=== PATIENT | male | born 1995 | race Caucasian/White ===

== ENCOUNTER 2018-01-06 10:55 | Emergency (ER) | payer BC, SELFPAY ==
[2018-01-06 10:59] VITALS: BP 140/87; PULSE 88; RESP 16; TEMP 36.8; O2SAT 98
--- NOTE | 2018-01-06 11:12 | W.ED.GENAD ---
Discharge Plan Disposition Patient Disposition: HOME Condition: Fair Discharge Details Chief Complaint: Nk/Back Pain Clinical Impression: Lumbar strain Primary Care Provider: Ronna Murrieta ED Provider: Jack Carpenter Home Meds and New Rx's Prescriptions: New cyclobenzaprine 10 mg tablet 10 mg PO TID PRN (Reason: back pain) Qty: 30 RF: 0 Continue triamcinolone acetonide 15 GM ointment 1 liang Topical BID Qty: 80 RF: 1 Discharge Instructions Instructions: Low Back Strain (ED) Additional Instructions: follow up with your primary care provider next week you can take 1000mg tylenol and 600mg ibuprofen every 6 hours for pain if you have difficulty urinating, abdominal pain or fevers return to the emergency department Discharge Data Discharge Physician: Jack Carpenter Medical Decision Making 22 yo male who denies chronic medical problems, no hx of ivdu or back surgeries, 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 Denies weakness, numbness or difficulty urinating, does have relief of pain when bending forward. Has normal reflexes, no saddle asnthesia and full strength of the lower extremities. Has no midline pain or cva tenderness. I suspect muscle strain vs spasm, could also be disc herniation. No findings to suggest sea or cauda equina at this time so do not feel emergent MRI indicated. Has no trauma so doubt fx and do not feel xray or ct indicated. No systemic symptoms or fevers so doubt cancer or infection at this time. Will start him on oral meds and have him f/u with pcp, return precautions given. Has no abdominal tenderness to suggest intrabdominal pathology at this time Differential Diagnosis back strain, muscle spasm, sciatica, disc herniation HPI General Mode of arrival: ambulatory. Date/Time Provider Initiated Documentation: 01/06/18 11:03. Limitations to Documentation: no limitations. Information obtained by: patient. History of Present Illness 22 year old M presents to the emergency department with the chief complaint of back pain, described as moderate, with intensity rated at 5. Quality is described as aching, and is localized to the back. Patient extremity. Patient started experiencing this day(s) (1) and it has been constant. other things that improve symptom(s), (bending forward) No exacerbating factors reported . Patient notes no other symptoms.. Patient did receive the following treatments prior to arrival, NSAID Related Data Home Medications Medication Instructions Recorded Confirmed triamcinolone acetonide 1 liang TOPICAL BID #80 gm 08/11/17 cyclobenzaprine 10 mg PO TID PRN #30 tab 01/06/18 Previous Rx's Medication Instructions Recorded triamcinolone acetonide 1 liang TOPICAL BID #80 gm 08/11/17 cyclobenzaprine 10 mg PO TID PRN #30 tab 01/06/18 Allergies Allergy/AdvReac Type Severity Reaction Status Date / Time No Known Allergies Allergy Unverified 08/19/15 08:27 General Stated Complaint: Nk/Back Pain ANNE-MARIE: 4 Review of Systems Review of Systems All systems reviewed & are unremarkable except as noted in HPI and below Constitutional Denies chills, Denies fever(s) and Denies weakness Eyes Denies loss of vision ENT Denies change in voice Cardiovascular Denies chest pain and Denies dyspnea Respiratory Denies dyspnea Gastrointestinal Denies abdominal pain, Denies nausea and Denies vomiting Genitourinary Denies dysuria Musculoskeletal Denies joint swelling Integumentary/Breasts Denies rash Neurologic Denies loss of vision and Denies weakness Psychiatric Denies depression Allergic/Immunologic Reports urticaria PFSH Family History Father Asthma Sister Asthma Grandmother Diabetes Hearing loss Mother No problems noted. Grandfather Cerebrovascular accident Grandfather No problems noted. Grandmother Diabetes PATERNAL FAMILY HISTORY Essential hypertension Personal history of malignant neoplasm Medical History Anemia Febrile convulsion Social History Smoking/Tobacco Use Status: Former Tobacco Use Exam Const General: no acute distress Orientation: alert [facility] Head: normal to inspection Ears: external ears normal General nose exam: external nose normal Mouth: moist mucous membranes Eyes General: appearance normal, both eyes and all related structures Neck Neck: normal visual inspection Resp Effort & Inspection: normal respiratory effort and able to speak in complete sentences Cardio Rate: regular rate Skin General skin exam: no rashes or lesions noted Neuro General: alert and oriented x3 Extrem General: normal to inspection Psych Mental Status: mental status grossly normal Course Vital Signs Temperature 36.8 C 01/06/18 10:59 Pulse 88 01/06/18 10:59 Respiratory Rate 16 01/06/18 10:59 Blood Pressure 140/87 01/06/18 10:59 Pulse Oximetry 98 01/06/18 10:59 Temperature 36.8 C 01/06/18 10:59 Temperature Source Skin 01/06/18 10:59 Pulse 88 01/06/18 10:59 Respiratory Rate 16 01/06/18 10:59 Respiratory Effort 01/06/18 11:02 Blood Pressure 140/87 01/06/18 10:59 Blood Pressure Position Sitting 01/06/18 10:59 Pulse Oximetry 98 01/06/18 10:59 Oxygen Delivery Method Room Air 01/06/18 10:59 Oxygen Flow Rate 0 01/06/18 10:59 Pain Level 7 01/06/18 11:03
--- NOTE | 2018-01-06 11:15 | ED.GENADUL_ITS ---
Discharge Plan Disposition Patient Disposition: HOME Condition: Fair Discharge Details Chief Complaint: Nk/Back Pain Clinical Impression: Lumbar strain Primary Care Provider: Ronna Murrieta ED Provider: Jack Carpenter Home Meds and New Rx's Prescriptions: New cyclobenzaprine 10 mg tablet 10 mg PO TID PRN (Reason: back pain) Qty: 30 RF: 0 Continue triamcinolone acetonide 15 GM ointment 1 liang Topical BID Qty: 80 RF: 1 Discharge Instructions Instructions: Low Back Strain (ED) Additional Instructions: follow up with your primary care provider next week you can take 1000mg tylenol and 600mg ibuprofen every 6 hours for pain if you have difficulty urinating, abdominal pain or fevers return to the emergency department Discharge Data Discharge Physician: Jack Carpenter Medical Decision Making 22 yo male who denies chronic medical problems, no hx of ivdu or back surgeries , 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 Denies weakness, numbness or difficulty urinating, does have relief of pain when bending forward. Has normal reflexes, no saddle asnthesia and full strength of the lower extremities. Has no midline pain or cva tenderness. I suspect muscle strain vs spasm, could also be disc herniation. No findings to suggest sea or cauda equina at this time so do not feel emergent MRI indicated. Has no trauma so doubt fx and do not feel xray or ct indicated. No systemic symptoms or fevers so doubt cancer or infection at this time. Will start him on oral meds and have him f/u with pcp, return precautions given. Has no abdominal tenderness to suggest intrabdominal pathology at this time Differential Diagnosis back strain, muscle spasm, sciatica, disc herniation HPI General Mode of arrival: ambulatory . Date/Time Provider Initiated Documentation: 01/06/18 11:03 . Limitations to Documentation: no limitations . Information obtained by: patient . History of Present Illness 22 year old M presents to the emergency department with the chief complaint of back pain, described as moderate, with intensity rated at 5. Quality is described as aching, and is localized to the back. Patient extremity. Patient started experiencing this day(s) (1) and it has been constant. other things that improve symptom(s), (bending forward) No exacerbating factors reported . Patient notes no other symptoms.. Patient did receive the following treatments prior to arrival, NSAID Related Data Home Medications Medication Instructions Recorded Confirmed triamcinolone acetonide 1 liang TOPICAL BID #80 gm 08/11/17 cyclobenzaprine 10 mg PO TID PRN #30 tab 01/06/18 Previous Rx's Medication Instructions Recorded triamcinolone acetonide 1 liang TOPICAL BID #80 gm 08/11/17 cyclobenzaprine 10 mg PO TID PRN #30 tab 01/06/18 Allergies Allergy/AdvReac Type Severity Reaction Status Date / Time No Known Allergies Allergy Unverified 08/19/15 08:27 General Stated Complaint: Nk/Back Pain ANNE-MARIE: 4 Review of Systems Review of Systems All systems reviewed & are unremarkable except as noted in HPI and below Constitutional Denies chills, Denies fever(s) and Denies weakness Eyes Denies loss of vision ENT Denies change in voice Cardiovascular Denies chest pain and Denies dyspnea Respiratory Denies dyspnea Gastrointestinal Denies abdominal pain, Denies nausea and Denies vomiting Genitourinary Denies dysuria Musculoskeletal Denies joint swelling Integumentary/Breasts Denies rash Neurologic Denies loss of vision and Denies weakness Psychiatric Denies depression Allergic/Immunologic Reports urticaria PFSH Family History Father Asthma Sister Asthma Grandmother Diabetes Hearing loss Mother No problems noted. Grandfather Cerebrovascular accident Grandfather No problems noted. Grandmother Diabetes PATERNAL FAMILY HISTORY Essential hypertension Personal history of malignant neoplasm Medical History Anemia Febrile convulsion Social History Smoking/Tobacco Use Status: Former Tobacco Use Exam Const General: no acute distress Orientation: alert [facility] Head: normal to inspection Ears: external ears normal General nose exam: external nose normal Mouth: moist mucous membranes Eyes General: appearance normal, both eyes and all related structures Neck Neck: normal visual inspection Resp Effort & Inspection: normal respiratory effort and able to speak in complete sentences Cardio Rate: regular rate Skin General skin exam: no rashes or lesions noted Neuro General: alert and oriented x3 Extrem General: normal to inspection Psych Mental Status: mental status grossly normal Course Vital Signs Temperature 36.8 C 01/06/18 10:59 Pulse 88 01/06/18 10:59 Respiratory Rate 16 01/06/18 10:59 Blood Pressure 140/87 01/06/18 10:59 Pulse Oximetry 98 01/06/18 10:59 Temperature 36.8 C 01/06/18 10:59 Temperature Source Skin 01/06/18 10:59 Pulse 88 01/06/18 10:59 Respiratory Rate 16 01/06/18 10:59 Respiratory Effort 01/06/18 11:02 Blood Pressure 140/87 01/06/18 10:59 Blood Pressure Position Sitting 01/06/18 10:59 Pulse Oximetry 98 01/06/18 10:59 Oxygen Delivery Method Room Air 01/06/18 10:59 Oxygen Flow Rate 0 01/06/18 10:59 Pain Level 7 01/06/18 11:03
[2018-01-06 11:20] VITALS: BP 140/87; PULSE 88; RESP 16; TEMP 36.8; O2SAT 98
== END 2018-01-06 11:20 | disposition home or self-care (01) ==
LOC: ER 11:23
PROVIDERS: Emergency Provider Emergency Medicine; PCP Nurse Practitioner Family
DX: S39.012A Strain of muscle, fascia and tendon of lower back, initial encounter (principal); X50.9XXA Other and unspecified overexertion or strenuous movements or postures, initial encounter; Y99.0 Civilian activity done for income or pay
CPT/HCPCS: 99283